=== PATIENT | female | born 1950 | race Two or more races ===

== ENCOUNTER 2019-04-02 23:32 | Inpatient (IN) | payer OTHER ==
[~2019-04-02] VITALS: Ht 152.4 cm; Wt 71.2 kg
--- NOTE | 2019-04-02 23:32 | NUR ---
[facility] CALLED [facility] ARRIVAL TO ED. PER RADIO REPORT PATIENT HAVING RIGHT SIDED GAZE AND RIGHT ARM SHAKING. [facility] CANCELLED BY ERP DUE TO SHAKING OF HER RIGHT ARM.
--- NOTE | 2019-04-02 23:35 | NUR ---
PATIENT WITH REPETITIVE MOVEMENT. + FACIAL DROOP WITH SIDE. INCOMPREHENSIVEBLE SOUNDS NOTED.
[2019-04-02] MEDS ORDERED: NITROPRUSSIDE 50 MG in SODIUM CHLORIDE 0.9% 248 ML IV PRN (23:45)
--- NOTE | 2019-04-02 23:45 | NUR ---
PATIENT INTUBATED. NICARDIPINE ORDERED. PATIENT TO CT SCAN.
[2019-04-03] MEDS ORDERED: LORazepam 2 MG/ML, 1ML IVPush ONE
[2019-04-03] MEDS ORDERED: ROCURONIUM 10 MG/ML,10ML IVPush ONE
[2019-04-03] MEDS ORDERED: SODIUM CHLORIDE 0.9% 1,000ML IVBOLUS ONE
[2019-04-03] MEDS ORDERED: ETOMIDATE 20 MG/10 ML IVPush ONE
--- NOTE | 2019-04-03 | NUR ---
BACK FROM CT SCAN. AWAITING RESULT. OG TUBE PLACED AND CONNECTED TO LOW SUCTION.
[2019-04-03 00:01] LABS: BASOPHILS # (AUTO) 0.04 x10^3/uL (0-0.1); BASOPHILS % (AUTO) 0 % (0-1); EOSINOPHILS # (AUTO) 0.34 x10^3/uL (0-0.4); EOSINOPHILS % (AUTO) 3 % (1-7); LYMPHOCYTES # (AUTO) 4.09 x10^3/uL (1-3.4); LYMPHOCYTES % (AUTO) 34 % (22-44); MD NO; MEAN CORPUSCULAR HEMOGLOBIN 28.6 pg (27.0-34.8); MEAN CORPUSCULAR HGB CONC 32.8 g/dL (32.4-35.8); MEAN CORPUSCULAR VOLUME 87.4 fL (80-100); MONOCYTES # (AUTO) 0.76 x10^3/uL (0.2-0.8); MONOCYTES % (AUTO) 6 % (2-9); NEUTROPHILS # (AUTO) 6.66 x10^3/uL (1.8-6.8); NEUTROPHILS % (AUTO) 56 % (42-75); PLATELET COUNT 392 x10^3/uL (130-400); RED CELL DISTRIBUTION WIDTH 14.1 % (9.6-15.2)
[2019-04-03 00:12] LABS: INTERNATIONAL NORMALIZED RATIO 0.91 (0.93-1.1); PROTHROMBIN TIME 9.6 Seconds (9.6-11.5)
[2019-04-03 00:14] LABS: ALANINE AMINOTRANSFERASE 20 U/L (12-78); ALBUMIN 3.8 g/dL (3.4-5.0); ANION GAP 5 mmol/L (5-15); CALCIUM 9.2 mg/dL (8.5-10.1); CHLORIDE 112 mmol/L (98-107); SALICYLATE LEVEL 2.2 mg/dL (2.8-20.0)
[2019-04-03 00:19] LABS: ALKALINE PHOSPHATASE 95 U/L (45-117); BILIRUBIN,TOTAL 0.2 mg/dL (0.2-1.0); CREATININE 2.21 mg/dL (0.55-1.02); TOTAL PROTEIN 8.1 g/dL (6.4-8.2); TROPONIN I < 0.015 ng/mL (0.000-0.045)
--- NOTE | 2019-04-03 00:22 | NUR ---
MEAD PLACED WITH GOOD URINE OUTPUT. PATIENT STILL WITH ELEVATED BP.
[2019-04-03] MEDS ORDERED: PROPOFOL 100 ML IV PRN (00:30)
[2019-04-03] MEDS ORDERED: LEVETIRACETAM 1,000 MG in SODIUM CHLORIDE 0.9% 100 ML IV ONE (00:30)
[2019-04-03] MEDS ORDERED: LORazepam 2 MG/ML, 1ML ONE (00:57)
--- NOTE | 2019-04-03 01:00 | NUR ---
BP and heart rate improving.
[2019-04-03 01:04] LABS: MICROSCOPIC AUTO
[2019-04-03 01:08] LABS: CULTURE INDICATED? YES
[2019-04-03 01:14] LABS: AMPHETAMINE SCREEN, URINE Negative (Negative); BARBITURATE SCREEN, URINE Negative (Negative); BENZODIAZEPINE SCREEN, URINE Negative (Negative); CANNABINOID SCREEN, URINE Negative (Negative); COCAINE SCREEN, URINE Negative (Negative); METHADONE SCREEN, URINE Negative (Negative); OPIATE SCREEN, URINE Negative (Negative)
[2019-04-03] MEDS ORDERED: INSULIN REGULAR 100 UNITS/ML, 3ML VIAL IVPush ONE (01:30)
[2019-04-03] MEDS ORDERED: ONDANSETRON 2MG/ML, 2ML IVPush PRN (01:30)
[2019-04-03] MEDS ORDERED: DEXTROSE 50%, 50ML VIAL IVPush ONE (01:30)
--- NOTE | 2019-04-03 01:50 | NUR ---
REPORT TO MARIELY PRECIADO.
[2019-04-03] MEDS ORDERED: BISACODYL 10 MG SUPP PR PRN (02:00)
[2019-04-03] MEDS ORDERED: DEXTROSE 50%, 50ML SYRINGE IVPush PRN (02:00)
[2019-04-03] MEDS ORDERED: DEXTROSE 4 GM TAB.CHEW PO PRN (02:00)
[2019-04-03] MEDS ORDERED: SENNA 176 MG/5 ML ORAL SOL NG PRN (02:00)
[2019-04-03] MEDS ORDERED: LIDOCAINE-MPF 1%, 2ML ENDO PRN (02:00)
[2019-04-03] MEDS ORDERED: LACTULOSE 20 GM/30 ML UDC NG PRN (02:00)
[2019-04-03] MEDS ORDERED: FENTANYL PF 100 MCG/2ML IVPush PRN (02:00)
[2019-04-03] MEDS ORDERED: GLUCAGON 1 MG IM PRN (02:00)
[2019-04-03] MEDS ORDERED: PHARMACY MAY ADJ FOR RENAL FX MC SCH (02:00)
[2019-04-03] MEDS ORDERED: SENNA/DOCUSATE TABLET NG PRN (02:00)
[2019-04-03 02:31] LABS: HEMOGLOBIN A1C 6.6 % (4.2-6.3)
[2019-04-03] MEDS: ALBUTEROL/IPRATROPIUM 2.5MG/0.5MG, 3 ML INLINE SCH ×6 (02:34→22:31)
[2019-04-03] MEDS: LEVETIRACETAM 500 MG in SODIUM CHLORIDE 0.9% 100 ML IV SCH ×2 (02:46→14:12)
[2019-04-03] MEDS: SODIUM CHLORIDE 0.9% 1,000 ML IV SCH ×2 (02:46→16:24)
[2019-04-03] MEDS: HEPARIN 5,000 UNITS/ML, 1ML SQ SCH ×3 (02:46→17:51)
[2019-04-03 03:00] VITALS: BP 148/72
[2019-04-03 03:00] LABS: BASOPHILS # (AUTO) 0.03 x10^3/uL (0-0.1); BASOPHILS % (AUTO) 0 % (0-1); EOSINOPHILS # (AUTO) 0.05 x10^3/uL (0-0.4); EOSINOPHILS % (AUTO) 0 % (1-7); LYMPHOCYTES % (AUTO) 14 % (22-44); MD NO; MEAN CORPUSCULAR HEMOGLOBIN 28.7 pg (27.0-34.8); MEAN CORPUSCULAR HGB CONC 32.6 g/dL (32.4-35.8); MEAN CORPUSCULAR VOLUME 88.2 fL (80-100); MEAN PLATELET VOLUME 7.5 fL (7.4-10.4); MONOCYTES # (AUTO) 0.65 x10^3/uL (0.2-0.8); MONOCYTES % (AUTO) 4 % (2-9); NEUTROPHILS # (AUTO) 12.69 x10^3/uL (1.8-6.8); NEUTROPHILS % (AUTO) 81 % (42-75); PLATELET COUNT 345 x10^3/uL (130-400); RED CELL DISTRIBUTION WIDTH 14.8 % (9.6-15.2)
[2019-04-03 03:06] LABS: INTERNATIONAL NORMALIZED RATIO 0.93 (0.93-1.1); PROTHROMBIN TIME 9.8 Seconds (9.6-11.5)
[2019-04-03 03:10] LABS: ANION GAP 7 mmol/L (5-15); CALCIUM 8.7 mg/dL (8.5-10.1); CHLORIDE 111 mmol/L (98-107); CREATININE 2.06 mg/dL (0.55-1.02); SALICYLATE LEVEL 1.7 mg/dL (2.8-20.0); TRIGLYCERIDES 409 mg/dL (50-200)
[2019-04-03 03:13] LABS: TROPONIN I < 0.015 ng/mL (0.000-0.045)
[2019-04-03 03:27] LABS: PH, VENOUS 7.316 pH (7.320-7.420)
[2019-04-03 04:00] VITALS: BP 139/73
[2019-04-03] MEDS: PROPOFOL 100 ML IV PRN ×4 (05:56→21:30)
[2019-04-03] MEDS ORDERED: ASPIRIN 325 MG TABLET EC PO SCH (06:00)
[2019-04-03] MEDS: ASPIRIN 325 MG TABLET PO SCH (06:30)
[2019-04-03] MEDS ORDERED: INSULIN LISPRO 100 UNITS/ML, PEN SQ-INSULIN SCH (07:00)
[2019-04-03] MEDS: INSULIN LISPRO 100 UNITS/ML, PEN SQ-INSULIN SCH ×4 (07:19→21:00)
[2019-04-03] MEDS ORDERED: ETOMIDATE 20 MG/10 ML ONE (08:14)
[2019-04-03] MEDS ORDERED: ROCURONIUM 10 MG/ML,10ML ONE (08:14)
[2019-04-03] MEDS ORDERED: PROPOFOL 10 MG/ML, 100ML IV ONE (08:14)
[2019-04-03 08:21] LABS: ANION GAP 5 mmol/L (5-15); CALCIUM 8.8 mg/dL (8.5-10.1); CHLORIDE 115 mmol/L (98-107); CREATININE 2.14 mg/dL (0.55-1.02)
[2019-04-03 08:22] LABS: TROPONIN I < 0.015 ng/mL (0.000-0.045)
[2019-04-03] MEDS: SODIUM CHLORIDE FLUSH 10ML SYR IVF SCH ×2 (09:21→21:35)
--- NOTE | 2019-04-03 12:54 | NUR ---
TF RECOMMENDATION: promote @ 50 ml/hr on propofol; promote @ 65 ml/hr off propofol Addendum: 04/03/19 at [address] Amended: Links added.
[2019-04-03] MEDS: INSULIN GLARGINE 100 UNITS/ML, PEN SQ-INSULIN SCH ×2 (13:26→21:36)
[2019-04-03] MEDS: FAMOTIDINE 20 MG/2 ML IVPush SCH (21:35)
[2019-04-04] MEDS: PROPOFOL 100 ML IV PRN (00:26)
[2019-04-04] MEDS: hydrALAzine 20 MG/ML, 1ML IVPush PRN ×3 (00:30→22:33)
[2019-04-04] MEDS: AMIODARONE 900 MG in DEXTROSE 5% 482 ML IV PRN ×2 (01:19→21:16)
[2019-04-04] MEDS: HEPARIN 5,000 UNITS/ML, 1ML SQ SCH ×3 (01:26→17:49)
[2019-04-04] MEDS ORDERED: FILTER 0.22 MICRON IV PRN (01:30)
[2019-04-04] MEDS ORDERED: AMIODARONE IN D5W 100 ML IV ONE (01:30)
[2019-04-04] MEDS: LEVETIRACETAM 500 MG in SODIUM CHLORIDE 0.9% 100 ML IV SCH ×2 (01:55→14:39)
[2019-04-04] MEDS: ALBUTEROL/IPRATROPIUM 2.5MG/0.5MG, 3 ML INLINE SCH ×6 (02:10→22:25)
[2019-04-04 04:11] LABS: MEAN CORPUSCULAR HGB CONC 32.9 g/dL (32.4-35.8); MEAN PLATELET VOLUME 7.9 fL (7.4-10.4); PLATELET COUNT 310 x10^3/uL (130-400); RED BLOOD COUNT 3.87 x10^6/uL (3.82-5.3); RED CELL DISTRIBUTION WIDTH 15.2 % (9.6-15.2)
[2019-04-04 04:20] VITALS: BP 168/87
[2019-04-04 04:22] LABS: ALANINE AMINOTRANSFERASE 19 U/L (12-78); ANION GAP 8 mmol/L (5-15); CHLORIDE 114 mmol/L (98-107); CREATININE 2.05 mg/dL (0.55-1.02)
[2019-04-04 04:30] LABS: ALKALINE PHOSPHATASE 73 U/L (45-117); BILIRUBIN,TOTAL 0.2 mg/dL (0.2-1.0); CALCIUM 8.6 mg/dL (8.5-10.1); CHOL/HDL RATIO 5.5; CHOLESTEROL, TOTAL 231 mg/dL (140-239); HDL CHOL % 18 % (28-40); HDL CHOLESTEROL (DIRECT) 42 mg/dL (40-60); LDL CHOLESTEROL,CALCULATED 117 mg/dL (54-169); LDL/HDL RATIO 2.8 (0.5-3.0); TOTAL PROTEIN 6.9 g/dL (6.4-8.2); TRIGLYCERIDES 362 mg/dL (50-200); VLDL CHOLESTEROL 72 mg/dL (0-25)
[2019-04-04 04:32] LABS: BILIRUBIN, DIRECT < 0.1 mg/dL (0.1-0.2); BILIRUBIN,INDIRECT 0.1 mg/dL (0.0-2.0)
[2019-04-04 04:37] LABS: BASOPHILS # (AUTO) 0.06 x10^3/uL (0-0.1); BASOPHILS % (AUTO) 0 % (0-1); EOSINOPHILS # (AUTO) 0.03 x10^3/uL (0-0.4); EOSINOPHILS % (AUTO) 0 % (1-7); LYMPHOCYTES # (AUTO) 1.82 x10^3/uL (1-3.4); LYMPHOCYTES % (AUTO) 10 % (22-44); MD SCAN; MONOCYTES # (AUTO) 1.11 x10^3/uL (0.2-0.8); MONOCYTES % (AUTO) 6 % (2-9); NEUTROPHILS # (AUTO) 15.07 x10^3/uL (1.8-6.8); NEUTROPHILS % (AUTO) 83 % (42-75)
[2019-04-04] MEDS: INSULIN LISPRO 100 UNITS/ML, PEN SQ-INSULIN SCH ×4 (04:40→21:14)
[2019-04-04] MEDS: SODIUM CHLORIDE 0.9% 1,000 ML IV SCH (05:36)
[2019-04-04] MEDS: ASPIRIN 325 MG TABLET PO SCH (05:37)
[2019-04-04] MEDS ORDERED: LORazepam 2 MG/ML, 1ML IVPush PRN (09:00)
[2019-04-04] MEDS: INSULIN GLARGINE 100 UNITS/ML, PEN SQ-INSULIN SCH ×2 (09:29→21:13)
[2019-04-04] MEDS: SODIUM CHLORIDE FLUSH 10ML SYR IVF SCH ×2 (09:30→21:13)
[2019-04-04] MEDS: FENTANYL PF 2,500 MCG in SODIUM CHLORIDE 0.9% 200 ML IV PRN (10:53)
[2019-04-04] MEDS ORDERED: SODIUM CHLORIDE 3% 500 ML IV PRN (15:30)
[2019-04-04] MEDS: CEFTRIAXONE PMX 1GM/50ML 50 ML IV SCH (16:24)
[2019-04-04] MEDS: FAMOTIDINE 20 MG/2 ML IVPush SCH (21:13)
[2019-04-05] MEDS ORDERED: SODIUM CHLORIDE 0.9% 1,000 ML IV SCH (01:19)
[2019-04-05] MEDS: HEPARIN 5,000 UNITS/ML, 1ML SQ SCH ×3 (02:06→17:30)
[2019-04-05] MEDS: LEVETIRACETAM 500 MG in SODIUM CHLORIDE 0.9% 100 ML IV SCH ×2 (02:06→14:00)
[2019-04-05] MEDS: ALBUTEROL/IPRATROPIUM 2.5MG/0.5MG, 3 ML INLINE SCH ×6 (02:40→23:00)
[2019-04-05] MEDS: INSULIN LISPRO 100 UNITS/ML, PEN SQ-INSULIN SCH ×4 (04:08→21:00)
[2019-04-05 04:38] LABS: MEAN CORPUSCULAR HGB CONC 33.3 g/dL (32.4-35.8); MEAN CORPUSCULAR VOLUME 87.1 fL (80-100); MEAN PLATELET VOLUME 8.1 fL (7.4-10.4); PLATELET COUNT 279 x10^3/uL (130-400); RED BLOOD COUNT 3.52 x10^6/uL (3.82-5.3); RED CELL DISTRIBUTION WIDTH 15.3 % (9.6-15.2)
[2019-04-05 05:41] LABS: MD YES
[2019-04-05 05:43] LABS: BAND#(MANUAL) 0.44 x10^3/uL; BANDS%(MANUAL) 2 % (0-7); LYMPH#(MANUAL) 1.11 x10^3/uL (1-3.4); LYMPHS% (MANUAL) 5 % (22-44); MONOS#(MANUAL) 0.66 x10^3/uL (0.3-2.7); MONOS% (MANUAL) 3 % (2-9); SEG#(MANUAL) 19.89 x10^3/uL (1.8-6.8); SEGS% (MANUAL) 90 % (42-75)
[2019-04-05] MEDS: ASPIRIN 325 MG TABLET PO SCH (05:43)
[2019-04-05 05:44] LABS: <PLATELET ESTIMATE> ADEQUATE; <PLT MORPHOLOGY> NORMAL PLT MORPH; ANISOCYTOSIS 1+
[2019-04-05] MEDS: SODIUM CHLORIDE FLUSH 10ML SYR IVF SCH ×2 (08:50→21:00)
[2019-04-05] MEDS: INSULIN GLARGINE 100 UNITS/ML, PEN SQ-INSULIN SCH ×2 (08:53→21:00)
[2019-04-05 09:03] LABS: ANION GAP 8 mmol/L (5-15); CALCIUM 8.9 mg/dL (8.5-10.1); CHLORIDE 119 mmol/L (98-107); CREATININE 2.12 mg/dL (0.55-1.02)
[2019-04-05] MEDS: hydrALAzine 20 MG/ML, 1ML IVPush PRN (10:12)
[2019-04-05] MEDS: CEFTRIAXONE PMX 1GM/50ML 50 ML IV SCH (15:30)
[2019-04-05] MEDS: FAMOTIDINE 20 MG/2 ML IVPush SCH (21:00)
[2019-04-06] MEDS: HEPARIN 5,000 UNITS/ML, 1ML SQ SCH ×3 (01:30→17:30)
[2019-04-06] MEDS: LEVETIRACETAM 500 MG in SODIUM CHLORIDE 0.9% 100 ML IV SCH ×2 (02:22→14:00)
[2019-04-06] MEDS: ALBUTEROL/IPRATROPIUM 2.5MG/0.5MG, 3 ML INLINE SCH ×6 (02:45→22:08)
[2019-04-06] MEDS: INSULIN LISPRO 100 UNITS/ML, PEN SQ-INSULIN SCH ×4 (03:00→21:00)
[2019-04-06] MEDS: FENTANYL PF 2,500 MCG in SODIUM CHLORIDE 0.9% 200 ML IV PRN (03:36)
[2019-04-06] MEDS: ASPIRIN 325 MG TABLET PO SCH (05:28)
[2019-04-06] MEDS: SODIUM CHLORIDE FLUSH 10ML SYR IVF SCH ×2 (09:00→21:00)
[2019-04-06] MEDS: INSULIN GLARGINE 100 UNITS/ML, PEN SQ-INSULIN SCH ×2 (09:00→21:00)
[2019-04-06] MEDS: hydrALAzine 20 MG/ML, 1ML IVPush PRN (09:13)
[2019-04-06] MEDS: CEFTRIAXONE PMX 1GM/50ML 50 ML IV SCH (15:07)
[2019-04-06] MEDS ORDERED: METOPROLOL 1 MG/ML, 5ML IVPush ONE (16:00)
[2019-04-06] MEDS ORDERED: METOPROLOL 1 MG/ML, 5ML IVPush PRN (16:30)
[2019-04-06] MEDS ORDERED: SODIUM CHLORIDE 0.9% 1,000 ML IVBOLUS PRN (20:07)
[2019-04-06] MEDS: FAMOTIDINE 20 MG/2 ML IVPush SCH (21:00)
[2019-04-07] MEDS: HEPARIN 5,000 UNITS/ML, 1ML SQ SCH ×3 (00:41→16:29)
[2019-04-07] MEDS: LEVETIRACETAM 500 MG in SODIUM CHLORIDE 0.9% 100 ML IV SCH ×2 (02:00→14:05)
[2019-04-07] MEDS: ALBUTEROL/IPRATROPIUM 2.5MG/0.5MG, 3 ML INLINE SCH ×5 (02:00→14:45)
[2019-04-07] MEDS: INSULIN LISPRO 100 UNITS/ML, PEN SQ-INSULIN SCH ×3 (03:00→15:00)
[2019-04-07] MEDS: ASPIRIN 325 MG TABLET PO SCH (06:00)
[2019-04-07] MEDS: SODIUM CHLORIDE FLUSH 10ML SYR IVF SCH (08:46)
[2019-04-07] MEDS: INSULIN GLARGINE 100 UNITS/ML, PEN SQ-INSULIN SCH (08:47)
[2019-04-07] MEDS: CEFTRIAXONE PMX 1GM/50ML 50 ML IV SCH (15:30)
[2019-04-07] MEDS ORDERED: SODIUM CHLORIDE 0.9% 1,000 ML IVBOLUS PRN (20:07)
== END 2019-04-07 22:04 | disposition expired | DRG 64 ==
LOC: ED 04-03 00:56 → EDIP 04-03 00:57 → CCU 04-03 02:03
PROVIDERS: ADMIT Family Medicine; ATTEND Internal Medicine
PROC: 0BH17EZ Insertion of Endotracheal Airway into Trachea, Via Natural or Artificial Opening (ICD-10-PCS; principal; 2019-04-03)
PROC: 5A1945Z Respiratory Ventilation, 24-96 Consecutive Hours (ICD-10-PCS; 2019-04-03)
DX: I63.511 Cerebral infarction due to unspecified occlusion or stenosis of right middle cerebral artery (principal); G93.6 Cerebral edema; J96.00 Acute respiratory failure, unspecified whether with hypoxia or hypercapnia; E72.20 Disorder of urea cycle metabolism, unspecified; I16.1 Hypertensive emergency; N39.0 Urinary tract infection, site not specified; N17.9 Acute kidney failure, unspecified; Z99.11 Dependence on respirator [ventilator] status; E11.22 Type 2 diabetes mellitus with diabetic chronic kidney disease; E87.5 Hyperkalemia; I13.10 Hypertensive heart and chronic kidney disease without heart failure, with stage 1 through stage 4 chronic kidney disease, or unspecified chronic kidney disease; I48.91 Unspecified atrial fibrillation; Z51.5 Encounter for palliative care; N18.9 Chronic kidney disease, unspecified; R29.810 Facial weakness; I65.21 Occlusion and stenosis of right carotid artery; E66.9 Obesity, unspecified; I63.81 Other cerebral infarction due to occlusion or stenosis of small artery; I66.11 Occlusion and stenosis of right anterior cerebral artery; I66.21 Occlusion and stenosis of right posterior cerebral artery; Z79.4 Long term (current) use of insulin; Z79.899 Other long term (current) drug therapy; Z68.30 Body mass index [BMI] 30.0-30.9, adult
CPT/HCPCS: 31500; 36415; 36600; 99291; J3490; J7620; 70450; 70544; 70547; 70551; 71045; 76770; 80048; 80053; 80061; 80307; 81001; 82140; 82247; 82248; 82533; 82803; 82962; 83036; 83605; 83735; 84100; 84295; 84478; 84484; 85025; 85610; 85730; 87070; 87077; 87081; 87086; 87186; 87205; 93005; 93306; 93880; 94002; 94003; 94640; 96365; 96368; 96375; G0378; J0696; J1644; J1815; J1953; J2704; J3010; J0282; J0360; J2060; J7030; J7050; J7060